=== PATIENT | female | born 1965 | race Caucasian/White ===

== ENCOUNTER 2018-08-26 16:45 | Emergency (ER) | payer OTHER ==
[2018-08-26 17:31] VITALS: BP 146/73
--- NOTE | 2018-08-26 18:02 | ED ---
GI/ HPI - HPI Summary HPI Summary: 53 yr old female with the complaint of dysuria, frequency of urination, and feeling of numbness, tingling up her sides and down arms with urination. She denies fever, chills. She has no focal weakness. She has no other complaints. No change in vision, speech, hearing, swallowing. - History of Current Complaint Chief Complaint: [facility] Time Seen by Provider: 08/26/18 17:41 Stated Complaint: URINARY Hx Last Menstrual Period: mirena IUD (april 2017) Pain Intensity: 7 - Allergy/Home Medications Allergies/Adverse Reactions: Allergies Allergy/AdvReac Type Severity Reaction Status Date / Time amoxicillin Allergy Hives Verified 08/26/18 17:22 Penicillins Allergy See Comment Verified 08/26/18 17:22 Sulfa (Sulfonamide Allergy Hives Verified 08/26/18 17:22 Antibiotics) Home Medications: Home Medications NK [No Home Medications Reported] 08/26/18 [History Confirmed 08/26/18] PMH/Surg Hx/FS Hx/Imm Hx Infectious Disease History: No Infectious Disease History: Denies: Traveled Outside the [place] in Last 30 Days - Family History Known Family History: Positive: None - Social History Occupation: Employed Full-time Alcohol Use: Occasionally Substance Use Type: Reports: None Smoking Status (MU): Never Smoked Tobacco Review of Systems Constitutional: Negative Positive: dysuria, frequency Positive: Other - denies back pain All Other Systems Reviewed And Are Negative: Yes Physical Exam Triage Information Reviewed: Yes Vital Signs On Initial Exam: Initial Vitals Temp Pulse Resp BP Pulse Ox 98.3 F 100 16 146/73 99 08/26/18 17:23 08/26/18 17:23 08/26/18 17:23 08/26/18 17:23 08/26/18 17:23 Vital Signs Reviewed: Yes Appearance: Positive: Well-Appearing, No Pain Distress Skin: Positive: Warm, Skin Color Reflects Adequate Perfusion Head/Face: Positive: Normal Head/Face Inspection Eyes: Positive: EOMI Neck: Positive: Nontender Respiratory/Lung Sounds: Positive: Clear to Auscultation, Breath Sounds Present Cardiovascular: Positive: RRR. Negative: Murmur Abdomen Description: Negative: Nontender Musculoskeletal: Positive: Strength/ROM Intact Neurological: Positive: Sensory/Motor Intact, Alert, Oriented to Person Place, Time, CN Intact II-III, Normal Gait, Speech Normal Psychiatric: Positive: Normal - Susanne Coma Scale Best Eye Response: 4 - Spontaneous Best Motor Response: 6 - Obeys Commands Best Verbal Response: 5 - Oriented Coma Scale Total: 15 Diagnostics - Vital Signs Vital Signs Temp Pulse Resp BP Pulse Ox 08/26/18 17:23 98.3 F 100 16 146/73 99 - Laboratory Lab Results: Lab Results 08/26/18 Range/Units 17:35 POC Urine Color Light yellow POC Urine Clarity Cloudy POC Urine pH 5.5 (5-9) POC Ur Specif [place] <= 1.005 L (1.010-1.030) POC Urine Protein Trace A (Negative) POC Ur Glucose (UA) Negative (Negative) POC Urine Ketones Negative (Negative) POC Urine Blood 3+ A (Negative) POC Urine Nitrite Negative (Negative) POC Urine Bilirubin Negative (Negative) POC Urine Urobilinogen 0.2 (Negative) POC U Leukocyte Esteras 3+ A (Negative) Lab Statement: Any lab studies that have been ordered have been reviewed, and results considered in the medical decision making process. GIGU Course/Dx - Course Course Of Treatment: 53 yr old with UTI, blood in urine and neurological symptoms. She signed out AMA. refused ambulance transport to ER. - Diagnoses Provider Diagnoses: UTI (urinary tract infection), Arm numbness, Hypertension Discharge - Sign-Out/Discharge Documenting (check all that apply): Patient Departure All imaging exams completed and their final reports reviewed: No Studies - Discharge Plan Condition: Good Disposition: AGAINST MEDICAL ADVICE Referrals: No Primary Care Phys,NOPCP [Primary Care Provider] - - Billing Disposition and Condition Condition: GOOD Disposition: Against Medical Advice
== END 2018-08-26 17:55 | disposition left against medical advice (07) ==
LOC: UCCORT 16:45
DX: N39.0 Urinary tract infection, site not specified (principal); R20.0 Anesthesia of skin; I10 Essential (primary) hypertension; Z88.1 Allergy status to other antibiotic agents; Z88.0 Allergy status to penicillin
CPT/HCPCS: 81003; 87077; 87086; 87186; 99202; G0463